=== PATIENT | female | born 1995 | race American Indian/Alaskan Native ===

== ENCOUNTER 2020-01-15 22:20 | Emergency (ER) | payer SELFPAY ==
[2020-01-15] MEDS ORDERED: LIDOCAINE 1%/EPINEPHRINE 1:100,000 VIAL (20 ML) INFILTRATI ONE (22:45)
[2020-01-15] MEDS ORDERED: DIPHtheria,PERTUSSIS(ACELL),TETANUS VACCINE/PF 0.5 ML VIAL IM ONE (22:45)
[2020-01-15] MEDS ORDERED: SODIUM CHLORIDE 0.9% 1000 ML 1,000 ML IV ONE (22:46)
[2020-01-15] MEDS ORDERED: SODIUM CHLORIDE IRRI 500 ML 500 ML IR ONE (23:04)
[2020-01-15 23:08] LABS: Basophils % (Auto) 0.5 % (0.0-1.8); Eosinophils # (Auto) 0.6 K/mm3 (0.0-0.4); Eosinophils % (Auto) 7.6 % (0.0-4.3); Hematocrit 36.5 % (30.3-42.9); Hemoglobin 11.8 gm/dl (10.1-14.3); Lymphocytes # (Auto) 3.4 K/mm3 (1.2-5.4); Lymphocytes % (Auto) 41.1 % (13.4-35.0); Mean Corpuscular HGB Conc 32 % (30-34); Monocytes # (Auto) 0.6 K/mm3 (0.0-0.8); Monocytes % (Auto) 7.3 % (0.0-7.3); Platelet Count 291 K/mm3 (140-440); Red Cell Distribution Width 16.8 % (13.2-15.2)
[2020-01-15 23:10] LABS: Mean Corpuscular Volume 69 fl (79-97)
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
[2020-01-15 23:19] LABS: INR 1.12 (0.87-1.13)
[2020-01-15 23:20] LABS: Partial Thromboplastin Time 28.4 Sec. (24.2-36.6)
[2020-01-15] MEDS ORDERED: MORPHINE 4 MG/1 ML INJ IV ONE (23:20)
[2020-01-15] MEDS ORDERED: ONDANSETRON 4 MG/2 ML INJ IV ONE (23:20)
[2020-01-15 23:25] LABS: Alanine Aminotransferase 11 units/L (7-56); Albumin 4.4 g/dL (3.9-5); Blood Urea Nitrogen 10 mg/dL (7-17); Calcium 9.6 mg/dL (8.4-10.2); Hemolysis Index 29
[2020-01-15 23:29] LABS: BUN/Creatinine Ratio 14
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
[2020-01-16 01:09] VITALS: BP 120/75
== END 2020-01-16 00:50 | disposition home or self-care (01) ==
LOC: ED 22:20
DX: S31.110A Laceration without foreign body of abdominal wall, right upper quadrant without penetration into peritoneal cavity, initial encounter (principal); S41.011A Laceration without foreign body of right shoulder, initial encounter; Z87.891 Personal history of nicotine dependence; Z91.010 Allergy to peanuts; X99.1XXA Assault by knife, initial encounter; Y93.89 Activity, other specified; Y92.89 Other specified places as the place of occurrence of the external cause; Y99.8 Other external cause status
CPT/HCPCS: 12013; 36415; 74177; 80053; 85025; 85610; 85730; 86850; 86900; 86901; 90471; 96361; 96374; 96375; 99284; J2270; J2405; J7030; Q9967